=== PATIENT | male | born 1965 | race Caucasian/White ===

== ENCOUNTER 2016-07-21 12:26 | Emergency (ER) | payer OTHER ==
[~2016-07-21] VITALS: Ht 193 cm; Wt 172.0 kg
[~2016-07-21 12:26] MED LIST: CEPH500T PO; LIRA0.6P SQ; LISI30TA4; METF-206 PO; [UNRECOGNIZED DRUG - CODE] PO
[2016-07-21 12:30] VITALS: Ht 193 cm; Wt 172.0 kg
--- OUTSIDE RECORDS SUMMARY | 2016-07-21 12:30 | XMS REPORT ---
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 lbs Temperature 99.1 F Blood Pressure Diastolic 54 mm Hg Blood Pressure Systolic 128 mm Hg Cardiac Monitoring Heart Rate 80 Beats per Minute BMI 48.24 Index Respiratory Rate 20 per Minute Results No Known Results Summary Purpose eClinicalWorks Submission
--- OUTSIDE RECORDS SUMMARY | 2016-07-21 12:30 | XMS REPORT ---
Author Author Gilma Williamson [facility] eClinicalWorks Address Unknown Phone Unavailable Care Team Providers Care Radiology Resident Name Role Phone Gilma Williamson CP Unavailable Allergies No Known Allergies Problems Problem Type Condition Code Onset Dates Condition Status Problem Diabetes Mellitus Type 2, not stated as uncontrolled 250.00 Active Problem Other and unspecified hyperlipidemia 272.4 Active Problem Type 2 diabetes mellitus without complications E11.9 Active Problem Other testicular dysfunction 257.8 Active Problem Hypertension, benign 401.1 Active Problem Circadian rhythm sleep disorder, 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 Dx code E11.9 July 26, 2015 1.8 mg Results No Known Results Summary Purpose eClinicalWorks Submission
--- OUTSIDE RECORDS SUMMARY | 2016-07-21 12:31 | XMS REPORT ---
Author Neela Lan [facility] eClinicalWorks Address Unknown Phone Unavailable Care Team Providers Care Procurement Forester Name Role Phone Neela Lloyd CP Unavailable Allergies, Adverse Reactions, Alerts Substance Reaction Event Type N.K.D.A. 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 Problem Diabetes Mellitus Type 2, not stated as uncontrolled 250.00 Active Problem Other and unspecified hyperlipidemia 272.4 Active Assessment Other acute otitis externa 380.22 Active Problem Other testicular dysfunction 257.8 Active Problem Hypertension, benign 401.1 Active Medications Medication Code System Code Instructions Start Date End Date Status Dosage Viagra [facility] [address]-09 100 MG Orally PRN Jan 08, 2015 1 tablet as needed Victoza [facility] [address]-20 18 MG/3ML Subcutaneous Once a day Dec 31, 2014 1.8 mg GlipiZIDE [facility] [address]-59 10 MG Orally BID 1 tablet Nuvigil [facility] [address]-60 150 MG Orally Once a day August 05, 2013 Feb 06, 2015 1 tablet 30 min-1 hr prior to work Amoxicillin [facility] [address]-11 500 MG Orally Twice a day August 26, 2014 September 02, 2014 1 capsule Cephalexin [facility] [address]-24 500 MG Orally Twice a day September 01, 2014 September 08, 2014 1 tablet Polytrim [facility] [address]-56 60547-2.1 UNIT/ML-% Ophthalmic 5 times a day September 01, 2014 September 08, 2014 1 drop into affected eye Metformin HCl [facility] [address]-15 1000 MG Orally Twice a day 1 tablet with meals Lisinopril [facility] [address]-41 20 MG Orally Once a day 1.5 tablets Procedures Procedure Coding System Code Date INJECTION (plus drug) CPT-4 60508 September 01, 2014 ROCEPHIN 250MG CPT-4 J0696 September 01, 2014 TORADOL 30MG CPT-4 J1885 September 01, 2014 OFFICE VISIT, EST-LOW COMPLEXITY (15 MIN.) CPT-4 70554 September 01, 2014 Lidocaine injection CPT-4 J2001 September 01, 2014 Vital Signs Date/Time: September 01, 2014 Height 75 in Weight 396 lbs Temperature 97.9 F Blood Pressure Diastolic 70 mm Hg Blood Pressure Systolic 138 mm Hg Cardiac Monitoring Heart Rate 68 /min BMI 49.49 Index Respiratory Rate 12 /min Results No Known Results Summary Purpose eClinicalWorks Submission
--- OUTSIDE RECORDS SUMMARY | 2016-07-21 12:31 | XMS REPORT ---
Author Gilma Ashford eClinicalWorks Address Unknown Phone Unavailable Care Team Providers Care Wood Cutter Name Role Phone Gilma Williamson CP Unavailable Allergies, Adverse Reactions, Alerts Substance Reaction Event Type N.K.D.A. 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 [address]-87 100 MG Orally Three times a day Feb 09, 2015 Mar 01, 2015 1 capsule as needed Verapamil HCl CR [facility] [address]-72 180 MG Orally Once a day Feb 09, 2015 1 tablet in the morning with food Lisinopril [facility] [address]-60 20 MG Orally Once a day 1 tab GlipiZIDE [facility] [address]-55 10 MG Orally BID 1 tablet Accu-Chek Compact [facility] [address]-27 In Vitro BID Jan 14, 2015 as directed Albuterol Sulfate HFA [facility] [address]-49 108 (90 Base) MCG/ACT Inhalation every 4 hrs Feb 09, 2015 2 puffs as needed ProAir HFA [facility] [address]-54 108 (90 Base) MCG/ACT Inhalation every 4-6 hrs Feb 10, 2015 2 puffs as needed Metformin HCl [facility] [address]-18 1000 MG Orally Twice a day 1 tablet with meals Victoza [facility] [address]-34 18 MG/3ML Subcutaneous Once a day Apr 19, 2015 1.8 mg Procedures Procedure Coding System Code Date OFFICE VISIT, EST-LOW COMPLEXITY (15 MIN.) CPT-4 60191 Feb 10, 2015 Vital Signs Date/Time: Feb 10, 2015 Height 75 in Weight 394.8 lbs Temperature 98.3 F Blood Pressure Diastolic 69 mm Hg Blood Pressure Systolic 126 mm Hg Cardiac Monitoring Heart Rate 69 /min BMI 49.34 Index Respiratory Rate 20 /min Results No Known Results Summary Purpose eClinicalWorks Submission
--- OUTSIDE RECORDS SUMMARY | 2016-07-21 12:31 | XMS REPORT ---
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 Problem Diabetes Mellitus Type 2, not stated as uncontrolled 250.00 Active Problem Other and unspecified hyperlipidemia 272.4 Active Assessment Hypertension, benign 401.1 Active Assessment Diabetes Mellitus Type 2, not stated as uncontrolled 250.00 Active Problem Other testicular dysfunction 257.8 Active Problem Hypertension, benign 401.1 Active Medications Medication Code System Code Instructions Start Date End Date Status Dosage Victoza [facility] [address]-39 18 MG/3ML Subcutaneous Once a day Dec 31, 2014 1.8 mg GlipiZIDE [facility] [address]-01 10 MG Orally BID 1 tablet Nuvigil [facility] [address]-47 150 MG Orally Once a day August 05, 2013 Feb 06, 2015 1 tablet 30 min-1 hr prior to work Lisinopril [facility] [address]-68 20 MG Orally Once a day 1.5 tablets Metformin HCl [facility] [address]-70 1000 MG Orally Twice a day 1 tablet with meals Amoxicillin [facility] [address]-05 500 MG Orally Twice a day August 26, 2014 September 02, 2014 1 capsule Viagra [facility] [address]-95 100 MG Orally PRN Jan 08, 2015 1 tablet as needed Procedures Procedure Coding System Code Date HEMOGLOBIN A1C, IN HOUSE CPT-4 56695 August 26, 2014 COMPLETE CBC W/AUTO DIFF WBC CPT-4 46867 August 26, 2014 OFFICE VISIT, EST-LOW COMPLEXITY (15 MIN.) CPT-4 27087 August 26, 2014 TSH CPT-4 08448 August 26, 2014 COMPREHENSIVE METABOLIC PANEL CPT-4 03321 August 26, 2014 Vital Signs Date/Time: August 26, 2014 Height 75 in Weight 395 lbs Temperature 98.5 F Blood Pressure Diastolic 80 mm Hg Blood Pressure Systolic 160 mm Hg Cardiac Monitoring Heart Rate 68 /min BMI 49.37 Index Respiratory Rate 12 /min Results Name Result Date Reference Range Unit Abnormality Flag In House HB A1c Summary Purpose eClinicalWorks Submission
--- OUTSIDE RECORDS SUMMARY | 2016-07-21 12:31 | XMS REPORT ---
Author Gilma Ashford eClinicalWorks Address Unknown Phone Unavailable Care Team Providers Care Switchboard And Control Room Operator Name Role Phone Gilma Williamson CP Unavailable Allergies, Adverse Reactions, Alerts Substance Reaction Event Type N.K.D.A. 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 Problem Diabetes Mellitus Type 2, not stated as uncontrolled 250.00 Active Problem Hypertension, benign 401.1 Active Assessment Acute bronchitis, unspecified J20.9 Active Problem Diabetes Mellitus Type 2, not stated as uncontrolled 250.00 Active Problem Other testicular dysfunction 257.8 Active Medications Medication Code System Code Instructions Start Date End Date Status Dosage Verapamil HCl CR [facility] [address]-47 180 MG Orally Once a day Feb 09, 2015 1 tablet in the morning with food Tessalon Perles [facility] [address]-58 100 MG Orally Three times a day Feb 09, 2015 Mar 01, 2015 1 capsule as needed Lisinopril [facility] [address]-66 20 MG Orally Once a day 1 tab Metformin HCl [facility] [address]-97 1000 MG Orally Twice a day 1 tablet with meals Victoza [facility] [address]-70 18 MG/3ML Subcutaneous Once a day Apr 19, 2015 1.8 mg Albuterol Sulfate HFA [facility] [address]-74 108 (90 Base) MCG/ACT Inhalation every 4 hrs Feb 09, 2015 2 puffs as needed ProAir HFA [facility] [address]-64 108 (90 Base) MCG/ACT Inhalation every 4-6 hrs Feb 10, 2015 2 puffs as needed Azithromycin [facility] [address]-34 250 MG Orally Once a day 2 tablet on the first day, then 1 tablet daily for 4 days GlipiZIDE [facility] [address]-91 10 MG Orally BID 1 tablet Accu-Chek Compact [facility] [address]-27 In Vitro BID Jan 14, 2015 as directed Procedures Procedure Coding System Code Date URINALYSIS, IN HOUSE CPT-4 93060 Feb 14, 2015 HEMOGLOBIN A1C, IN HOUSE CPT-4 78440 Feb 14, 2015 OFFICE VISIT, EST-LOW COMPLEXITY (15 MIN.) CPT-4 09752 Feb 14, 2015 Vital Signs Date/Time: Feb 14, 2015 Height 75 in Weight 397.12 lbs Temperature 98.3 F Blood Pressure Diastolic 78 mm Hg Blood Pressure Systolic 145 mm Hg Cardiac Monitoring Heart Rate 65 /min BMI 49.63 Index Respiratory Rate 22 /min Results No Known Results Summary Purpose eClinicalWorks Submission
--- OUTSIDE RECORDS SUMMARY | 2016-07-21 12:31 | XMS REPORT ---
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
--- OUTSIDE RECORDS SUMMARY | 2016-07-21 12:31 | XMS REPORT ---
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
--- OUTSIDE RECORDS SUMMARY | 2016-07-21 12:31 | XMS REPORT | Continuity of Care Document ---
Author Author [facility] Organization [facility] Address Unknown Phone Unavailable Support Name Relationship Address Phone CANDIDO GILMORE APRN Caregiver [address] [place] [place] [id number] [id number] Next Of Kin [address] [place], [place] [id number] Problems Medical Problems Problem Onset Date Status Swelling of lower limb Unknown Active Diabetic foot ulcer Unknown Active Swelling of lower limb Unknown Active Medications Medication Dose Route Sig Days/Qty Instructions Order Date Discontinued Date Status Aspirin 1 Tab PO TWICE A DAY 08/23/09 01/17/12 Discontinued Exenatide 5 Mcg SQ TWICE A DAY 08/23/09 01/17/12 Discontinued Glipizide 1 Tab PO DAILY 08/23/09 01/17/12 Discontinued Lisinopril 1 Tab PO DAILY 08/23/09 01/17/12 Discontinued Lovastatin 1 Tab PO DAILY 08/23/09 01/17/12 Discontinued Metformin Hcl 1 Tab PO DAILY 08/23/09 Active Liraglutide 1.8 Mg SQ DAILY 01/17/12 Active Glipizide 10 Mg PO DAILY 01/17/12 Active Lisinopril DAILY 11/13/13 Active Cephalexin 1 Tab PO THREE TIMES A DAY 30 Qty 11/13/13 Active Social History Social History Problem Response Recorded Date/Time Hx Substance Use No 01/15/2014 12:00pm Hx Alcohol Use No 01/15/2014 12:00pm Hospital Discharge Instructions No hospital discharge instructions. Plan of Care No plan of care. Functional Status Query Response Date Recorded Physical Hygiene Self November 13, 2013 5:43pm Physical Hygiene Self November 13, 2013 5:43pm Allergies, Adverse Reactions, Alerts Allergen Type Severity Reaction Status Last Updated No Known Drug Allergies Allergy Unknown Active 11/13/13 Immunizations Name Given Type Hx Influenza Vaccination No Historical Hx Pneumococcal Vaccination No Historical Hx Influenza Vaccination No Historical Vital Signs No known vital signs results. Results Test Source Date Result Interp. Ref. Range Comments Activated Partial Thromboplast Time August 23, 2009 2:05pm 30.6 SEC N 24- 36 Alanine Aminotransferase (ALT/SGPT) November 11, 2013 4:43pm 45 U/L N 21-72 Albumin November 11, 2013 4:43pm 3.9 G/DL N 3.5-5.0 Albumin/Globulin Ratio November 11, 2013 4:43pm 1.4 RATIO N 1.1-2.2 Alkaline Phosphatase November 11, 2013 4:43pm 47 U/L N 38-126 Anion Gap November 11, 2013 4:43pm 12 MEQ/L N 5-15 Aspartate Amino Transf (AST/SGOT) November 11, 2013 4:43pm 31 U/L N 17- 59 BUN/Creatinine Ratio November 11, 2013 4:43pm 20 RATIO N 6-26 Band Neutrophils # August 23, 2009 2:05pm 0.2 T/MM3 - Band Neutrophils % August 23, 2009 2:05pm 2.0 % N 0-6 Basophils # (Auto) November 13, 2013 5:45pm 0.0 T/MM3 N 0-0.2 Basophils (%) (Auto) November 13, 2013 5:45pm 0.2 % N 0-2 Blood Urea Nitrogen November 11, 2013 4:43pm 22.0 MG/DL H 9-20 Calcium Level November 11, 2013 4:43pm 9.3 MG/DL N 8.4-10.2 Calculated Osmolality November 11, 2013 4:43pm 278 MOSM/KG N 261-280 Carbon Dioxide Level November 11, 2013 4:43pm 28 MEQ/L N 22-30 Chloride Level November 11, 2013 4:43pm 96 MEQ/L L 98-107 Cholesterol Level December 04, 2013 9:07am 189 MG/DL N 132-199 Cholesterol/HDL Ratio December 04, 2013 9:07am 6.3 RATIO H 0-5.0 Conjugated Bilirubin January 17, 2012 4:50pm 0.00 MG/DL N 0.00-0.30 Creatinine November 11, 2013 4:43pm 1.1 MG/DL N 0.8-1.5 Differential Total Cells Counted August 23, 2009 2:05pm 100 % - Eosinophils # (Auto) November 13, 2013 5:45pm 0.1 T/MM3 N 0-0.5 Eosinophils (%) (Auto) November 13, 2013 5:45pm 1.3 % N 0-4 Erythrocyte Sedimentation Rate November 11, 2013 4:43pm 36 MM/HR H 0- 15 Free Thyroxine August 14, 2010 9:00am 0.84 NG/DL N 0.78-2.19 Giardia Antigen January 17, 2012 5:20pm Ref lab rpt scanned - --- 01/18/12 1649 ---SELMAARD previously reported as: SENT OUT Globulin November 11, 2013 4:43pm 2.8 G/DL N 2.4-3.6 Glucose Level November 11, 2013 4:43pm 341 MG/DL H 75-110 Hematocrit November 13, 2013 5:45pm 41.8 % N 41-53 Hemoglobin November 13, 2013 5:45pm 13.6 GM/DL N 13.5-17.5 Hemoglobin A1c December 04, 2013 9:07am 9.3 % H 6-7 <6.0 NON-DIABETIC RANGE6.0-7.0 ADA THERAPEUTIC RANGE >7.0 ACTION SUGGESTED Hepatitis B Surface Antigen December 05, 2011 3:45pm Negative - Hepatitis C Antibody December 05, 2011 3:45pm Negative - LDL Cholesterol, Calculated December 04, 2013 9:07am 103.4 N 66-159 Lipase January 17, 2012 4:50pm 75 U/L N 23-300 Lymphocytes # (Auto) November 13, 2013 5:45pm 2.1 T/MM3 N 1-4.8 Lymphocytes # (Manual) August 23, 2009 2:05pm 1.2 T/MM3 N 1-4.8 Lymphocytes % (Manual) August 23, 2009 2:05pm 10.0 % L 23-45 Lymphocytes (%) (Auto) November 13, 2013 5:45pm 25.5 % N 23-45 Mean Corpuscular Hemoglobin November 13, 2013 5:45pm 28.1 UUG N 26-34 Mean Corpuscular Hemoglobin Concent November 13, 2013 5:45pm 32.5 GM/DL N 31-37 Mean Corpuscular Volume November 13, 2013 5:45pm 86.4 UM3 N 80-100 Mean Platelet Volume November 13, 2013 5:45pm 10.9 UM3 N 9.4-12.4 Monocytes # (Auto) November 13, 2013 5:45pm 0.6 T/MM3 N 0-0.8 Monocytes # (Manual) August 23, 2009 2:05pm 0.1 T/MM3 N 0-0.8 Monocytes % (Manual) August 23, 2009 2:05pm 1.0 % N 0-9.0 Monocytes (%) (Auto) November 13, 2013 5:45pm 6.7 % N 0-9.0 Neutrophils # (Auto) November 13, 2013 5:45pm 5.4 T/MM3 N 1.8-7.7 Neutrophils # (Manual) August 23, 2009 2:05pm 10.6 T/MM3 H 1.8-7.7 Neutrophils % (Manual) August 23, 2009 2:05pm 87.0 % H 33-66 Neutrophils (%) (Auto) November 13, 2013 5:45pm 65.7 % N 33-66 Ova and Parasites (LAB) January 17, 2012 5:20pm Sent out - Has specimen been collected/obtained? Y Platelet Count November 13, 2013 5:45pm 171 T/MM3 N 130-400 Potassium Level November 11, 2013 4:43pm 3.9 MEQ/L N 3.6-5 Prothromb Time International Ratio August 23, 2009 2:05pm 1.20 H 0.86- 1.10 THERAPUTIC RANGE=2.00-3.00 FOR ANTI-THROMBOSIS THERAPUTIC RANGE=2.50- 3.50 FOR IMPLANTED VALVE RDW Standard Deviation November 13, 2013 5:45pm 40.1 FL N 36.9-50.2 Red Blood Count November 13, 2013 5:45pm 4.84 M/MM3 N 4.50-5.90 Sodium Level November 11, 2013 4:43pm 136 MEQ/L N 134-144 Stool for White Cells January 17, 2012 5:20pm Negative - Has specimen been collected/obtained? Y Thyroid Stimulating Hormone (TSH) June 02, 2011 11:11am 2.22 MIU/L N 0.47-4.68 Total Bilirubin November 11, 2013 4:43pm 0.60 MG/DL N 0.20-1.30 Total Protein November 11, 2013 4:43pm 6.7 G/DL N 6.3-8.2 Triglycerides Level December 04, 2013 9:07am 278 MG/DL H 40-160 Unconjugated Bilirubin January 17, 2012 4:50pm 0.20 MG/DL N 0.00-1.10 Urine Amorphous Phosphates August 23, 2009 2:02pm Few - Has specimen been collected/obtained? Y Urine Bacteria August 23, 2009 2:02pm Trace H - Has specimen been collected/obtained? Y Urine Bilirubin January 17, 2012 6:40pm Negative - Has specimen been collected/obtained? Y Urine Blood January 17, 2012 6:40pm Negative - Has specimen been collected/obtained? Y Urine Collection Type January 17, 2012 6:40pm Voided - Has specimen been collected/obtained? Y Urine Color January 17, 2012 6:40pm Yellow - Has specimen been collected/obtained? Y Urine Glucose (UA) January 17, 2012 6:40pm Negative - Has specimen been collected/obtained? Y Urine Ketones January 17, 2012 6:40pm Negative - Has specimen been collected/obtained? Y Urine Leukocyte Esterase January 17, 2012 6:40pm Negative - Has specimen been collected/obtained? Y Urine Microalbumin June 02, 2011 11:11am 37.3 MG/L H 0-17 Urine Mucus August 23, 2009 2:02pm Present - Has specimen been collected/obtained? Y Urine Nitrite January 17, 2012 6:40pm Negative - Has specimen been collected/obtained? Y Urine Protein January 17, 2012 6:40pm Negative - Has specimen been collected/obtained? Y Urine RBC August 23, 2009 2:02pm None seen /HPF - Has specimen been collected/obtained? Y Urine Specific [place] January 17, 2012 6:40pm 1.020 - Has specimen been collected/obtained? Y Urine Squamous Epithelial Cells August 23, 2009 2:02pm Few - Has specimen been collected/obtained? Y Urine Turbidity January 17, 2012 6:40pm Clear - Has specimen been collected/obtained? Y Urine Urobilinogen January 17, 2012 6:40pm Normal EU/DL - Has specimen been collected/obtained? Y Urine WBC August 23, 2009 2:02pm 3-5 /HPF - Has specimen been collected /obtained? Y Urine pH January 17, 2012 6:40pm 5.0 - Has specimen been collected/ obtained? Y VLDL Cholesterol December 04, 2013 9:07am 55.6 MG/DL H 0-28 White Blood Count November 13, 2013 5:45pm 8.3 T/MM3 N 4.5-11.0 Chemistry Specimen Hemolysis November 11, 2013 4:43pm < 15 0-25 0-25 : No Hemolysis.26-70: Slight Hemolysis - can falsely elevate K and Urine Protein. 71-285: Moderate Hemolysis - can falsely elevate K, Troponin I, CA 19-9, PTH, CSF GLucose, and Urine Protein, and can falsely decrease Phenytoin. 286-999: Gross Hemolysis - can falsely elevate K, Troponin I, CA 19-9, PTH, CSF Glucose, and Urine Protine, and can falsely decrease Phenytoin. Recommend specimen recollection. Lab Scanned Report December 04, 2013 9:12am LAB TEST FORM REQUEST [id number] - HDL Cholesterol Direct December 04, 2013 9:07am 30 MG/DL L 40-60 HIV (1&2) Antibody Rapid December 05, 2011 3:45pm Negative - Turbidity November 11, 2013 4:43pm < 20 0-20 Glomerular Filtration Rate Calc November 11, 2013 4:43pm 71 - Immature Granulocyte # (Auto) November 13, 2013 5:45pm 0.05 T/MM3 H 0.00-0.03 Immature Granulocyte % (Auto) November 13, 2013 5:45pm 0.6 % H 0.0-0.5 Icterus Index November 11, 2013 4:43pm < 2 0-7 Urine Microscopic Not Indicated January 17, 2012 6:40pm Not indicated - Has specimen been collected/obtained? Y C. difficile Toxin B Gene (PCR) January 17, 2012 5:20pm Negative - If Toxin A is clinically indicated, treat accordingly. Blood Culture Blood January 17, 2012 4:55pm NO GROWTH AFTER 5 DAYS Stool Culture Stool January 17, 2012 5:20pm Procedures No known history of procedures. Encounters Encounter Location Date/Time Discharged [facility] 01/15/14 9:00am
--- OUTSIDE RECORDS SUMMARY | 2016-07-21 12:31 | XMS REPORT ---
Author Gilma Ashford [facility] eClinicalWorks Address Unknown Phone Unavailable Care Team Providers Care Monologist Name Role Phone Gilma Williamson CP Unavailable Allergies, Adverse Reactions, Alerts Substance Reaction Event Type N.K.D.A. 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 Problem Diabetes Mellitus Type 2, not stated as uncontrolled 250.00 Active Problem Hypertension, benign 401.1 Active Assessment Unspecified otitis media 382.9 Active Problem Diabetes Mellitus Type 2, not stated as uncontrolled 250.00 Active Problem Other testicular dysfunction 257.8 Active Medications Medication Code System Code Instructions Start Date End Date Status Dosage Hydrocodone-Acetaminophen [facility] [address]-12 5-325 MG Orally every 6 hrs 1 tablet as needed Metformin HCl [facility] [address]-91 1000 MG Orally Twice a day 1 tablet with meals Nuvigil [facility] [address]-49 150 MG Orally Once a day August 05, 2013 Feb 06, 2015 1 tablet 30 min-1 hr prior to work Fluticasone Propionate [facility] [address]-57 50 MCG/ACT Nasally Once a day September 13, 2014 1 spray in each nostril Victoza [facility] [address]-68 18 MG/3ML Subcutaneous Once a day Dec 31, 2014 1.8 mg Lisinopril [facility] [address]-30 20 MG Orally Once a day 1.5 tablets GlipiZIDE [facility] [address]-32 10 MG Orally BID 1 tablet Viagra [facility] [address]-89 100 MG Orally PRN Jan 08, 2015 1 tablet as needed Procedures Procedure Coding System Code Date OFFICE VISIT, EST-LOW COMPLEXITY (15 MIN.) CPT-4 86679 September 13, 2014 Vital Signs Date/Time: September 13, 2014 Height 75 in Weight 389.75 lbs Temperature 97.8 F Blood Pressure Diastolic 74 mm Hg Blood Pressure Systolic 176 mm Hg Cardiac Monitoring Heart Rate 60 /min BMI 48.71 Index Respiratory Rate 20 /min Results No Known Results Summary Purpose eClinicalWorks Submission
--- OUTSIDE RECORDS SUMMARY | 2016-07-21 12:31 | XMS REPORT ---
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 Problem Diabetes Mellitus Type 2, not stated as uncontrolled 250.00 Active Problem Hypertension, benign 401.1 Active Assessment Diabetes Mellitus Type 2, not stated as uncontrolled 250.00 Active Problem Diabetes Mellitus Type 2, not stated as uncontrolled 250.00 Active Problem Other testicular dysfunction 257.8 Active Medications Medication Code System Code Instructions Start Date End Date Status Dosage Victoza [facility] [address]-27 18 MG/3ML Subcutaneous Once a day Apr 19, 2015 1.8 mg Viagra [facility] [address]-80 100 MG Orally PRN Feb 13, 2015 1 tablet as needed Accu-Chek Compact [facility] [address]-57 In Vitro BID Jan 14, 2015 as directed Results No Known Results Summary Purpose eClinicalWorks Submission
--- OUTSIDE RECORDS SUMMARY | 2016-07-21 12:31 | XMS REPORT ---
Author Author Gilma Williamson [facility] eClinicalWorks Address Unknown Phone Unavailable Care Team Providers Care Master Cosmetologist Name Role Phone Gilma Williamson CP Unavailable [...] Start Date End Date Status Dosage Victoza [facility] [address]-51 18 MG/3ML Subcutaneous Once a day July 08, 2015 1.8 mg Results No Known Results Summary Purpose eClinicalWorks Submission
--- OUTSIDE RECORDS SUMMARY | 2016-07-21 12:31 | XMS REPORT ---
Author Tor Gill Organization eClinicalWorks Address Unknown Phone Unavailable Care Team Providers Care Clinic Assistant Name Role Phone Tor Edwards CP Unavailable Allergies, Adverse Reactions, Alerts Substance Reaction Event Type N.K.D.A. Info Not Available Non Drug Allergy Problems Problem Type Condition ICD-9 Code Onset Dates Condition Status Assessment Other acute otitis externa 380.22 Active Assessment Diabetes Mellitus Type 2, not [...] Instructions Start Date End Date Status Dosage [place] [facility] [address]-97 5-325 MG Orally every 6 hrs as needed for pain. take no other tylenol products or pain medicines while on this. September 02, 2014 September 16, 2014 1 tablet as needed Nuvigil [facility] [address]-87 150 MG Orally Once a day August 05, 2013 Feb 06, 2015 1 tablet 30 min-1 hr prior to work Lisinopril [facility] [address]-91 20 MG Orally Once a day 1.5 tablets Victoza [facility] [address]-21 18 MG/3ML Subcutaneous Once a day Dec 31, 2014 1.8 mg Polytrim [facility] [address]-20 06818-3.1 UNIT/ML-% Ophthalmic 5 times a day September 01, 2014 September 08, 2014 1 drop into affected eye Clotrimazole [facility] [address]-49 1 % Externally to bilateral ears Three times a day September 02, 2014 September 12, 2014 otic solution. 3 to 4 drops to affected ears Levaquin [facility] [address]-93 750 MG Orally every 24 hrs September 02, 2014 September 12, 2014 1 tablet Viagra [facility] [address]-83 100 MG Orally PRN Jan 08, 2015 1 tablet as needed Metformin HCl [facility] [address]-53 1000 MG Orally Twice a day 1 tablet with meals GlipiZIDE [facility] [address]-43 10 MG Orally BID 1 tablet Procedures Procedure Coding System Code Date COMPREHENSIVE METABOLIC PANEL CPT-4 56672 September 02, 2014 SED RATE CPT-4 67661 September 02, 2014 COMPLETE CBC W/AUTO DIFF WBC CPT-4 18267 September 02, 2014 OFFICE VISIT, EST-MOD. COMPLEXITY (25 MIN) CPT-4 00976 September 02, 2014 Vital Signs Date/Time: September 02, 2014 Height 75 in Weight 396 lbs Temperature 98.1 F Blood Pressure Diastolic 74 mm Hg Blood Pressure Systolic 136 mm Hg Cardiac Monitoring Heart Rate 71 /min BMI 49.49 Index Oximetry 98 % Respiratory Rate 16 /min Results No Known Results Summary Purpose eClinicalWorks Submission
--- OUTSIDE RECORDS SUMMARY | 2016-07-21 12:31 | XMS REPORT ---
Author Author Gilma Williamson [facility] eClinicalWorks Address Unknown Phone Unavailable Care Team Providers Care Flake Miller Wheat And Oats Name Role Phone Gilma Williamson CP Unavailable [...]
--- OUTSIDE RECORDS SUMMARY | 2016-07-21 12:31 | XMS REPORT ---
Author Author Chelita Guzman [facility] eClinicalWorks Address Unknown Phone Unavailable Care Team Providers Care Exterminator Name Role Phone Chelita Guzman CP Unavailable Allergies, Adverse Reactions, Alerts Substance Reaction Event Type N.K.D.A. 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 Assessment Essential (primary) hypertension I10 Active [...] Instructions Start Date End Date Status Dosage Lisinopril [facility] [address]-13 20 MG Orally Once a day 1 tab Albuterol Sulfate HFA [facility] [address]-02 108 (90 Base) MCG/ACT Inhalation every 4 hrs Feb 09, 2015 2 puffs as needed BD U/F Short Pen Needle [facility] 8290-565297 31G X 8 MM Subcutaneous BID, DX: E11.9 Feb 24, 2015 as directed Metformin HCl [facility] [address]-38 1000 MG Orally Twice a day 1 tablet with meals Acyclovir [facility] [address]-66 400 MG Orally five times a day Mar 16, 2015 1 tablet ProAir HFA [facility] [address]-63 108 (90 Base) MCG/ACT Inhalation every 4-6 hrs Feb 10, 2015 2 puffs as needed Verapamil HCl CR [facility] [address]-08 180 MG Orally Once a day Feb 09, 2015 1 tablet in the morning with food Victoza [facility] [address]-95 18 MG/3ML Subcutaneous Once a day July 08, 2015 1.8 mg GlipiZIDE [facility] [address]-01 10 MG Orally BID 1 tablet Accu-Chek Compact [facility] [address]-08 In Vitro BID Jan 14, 2015 as directed Azithromycin [facility] [address]-61 250 MG Orally Once a day 2 tablet on the first day, then 1 tablet daily for 4 days Procedures Procedure Coding System Code Date OFFICE VISIT, EST-LOW COMPLEXITY (15 MIN.) CPT-4 68235 Mar 16, 2015 Vital Signs Date/Time: Mar 16, 2015 Height 75 in Weight 394.0 lbs Temperature 98.2 F Blood Pressure Diastolic 82 mm Hg Blood Pressure Systolic 133 mm Hg Cardiac Monitoring Heart Rate 80 /min BMI 49.24 Index Respiratory Rate 22 /min Results No Known Results Summary Purpose eClinicalWorks Submission
--- OUTSIDE RECORDS SUMMARY | 2016-07-21 12:31 | XMS REPORT | Continuity of Care Document ---
Author Author [facility] Organization [facility] Address Unknown Phone Unavailable Support Name Relationship Address Phone DEIRDRE CANDIDOANNABELLA Allen APRN Caregiver [address] [place] [address] LEVI CARLSON MD Caregiver [address] [place] [address] [place] [phone] SHAINA SPENCER Next Of Kin [address] [place] [address] Problems Medical Problems Problem Onset Date Status Swelling of lower limb Unknown Active Diabetic foot ulcer Unknown Active Medications Medication Dose Route Sig [...] History Social History Problem Response Recorded Date/Time Smoking Status Former smoker 11/13/2013 5:43pm When did patient START smoking? 199211/13/2013 5:43pm When did patient STOP smoking? 199511/13/2013 5:43pm Chewing Tobacco Status Yes 11/13/2013 5:43pm Hx Substance Use No 11/13/2013 5:43pm Hx Alcohol Use No 11/13/2013 5:43pm Query Response Start Date Stop Date Smoking Status Never smoker Hospital Discharge Instructions No hospital discharge instructions. Plan of Care No plan of care. Functional Status Query Response Date Recorded Physical Hygiene Self November 13, 2013 5:43pm Disabilities None November 13, 2013 5:43pm Devices Used Glasses November 13, 2013 5:43pm Dressing Self November 13, 2013 5:43pm Ambulation Self November 13, 2013 5:43pm Diet Self November 13, 2013 5:43pm Mental Status Alert November 13, 2013 7:57pm Disabilities None November 13, 2013 5:43pm Devices Used Glasses November 13, 2013 5:43pm Physical Hygiene Self November 13, 2013 5:43pm Dressing Self November 13, 2013 5:43pm Ambulation Self November 13, 2013 5:43pm Diet Self November 13, 2013 5:43pm Allergies, Adverse Reactions, Alerts Allergen Type Severity Reaction Status Last Updated No Known Drug Allergies Allergy Unknown Active 11/13/13 Immunizations Name Given Type Hx Influenza Vaccination No Historical Hx Pneumococcal Vaccination No Historical Hx Influenza Vaccination No Historical Vital Signs Acute Vital Signs Vital Response Date/Time Temperature (Fahrenheit) 97.8 deg F (96.8 - 99.1) Temperature (Calculated Celsius) 36.08024 degrees C (36.0 - 37.3) Pulse Rate (adult) 62 bpm (60 - 100) Respiratory Rate 20 breaths/min (10 - 20) O2 Sat by Pulse Oximetry 95 % (90 - 100) Blood Pressure 143/75 mm Hg Height 6 ft 3 in Weight 388 lb Body Mass Index 48.0 kg/m^2 Results Test Source Date Result Interp. Ref. [...] 4:43pm 96 MEQ/L L 98-107 Cholesterol Level June 02, 2011 11:11am 208 MG/DL H 132-199 Cholesterol/HDL Ratio June 02, 2011 11:11am 5.6 RATIO H 0-5.0 Conjugated Bilirubin January 17, [...] lab rpt scanned - --- 01/18/12 1649 ---SAE previously reported as: SENT OUT Globulin November 11, 2013 4:43pm 2.8 G/DL N 2.4-3.6 Glucose Level November 11, 2013 4:43pm 341 MG/DL H 75-110 Hematocrit November 13, 2013 5:45pm 41.8 % N 41-53 Hemoglobin November 13, 2013 5:45pm 13.6 GM/DL N 13.5-17.5 Hemoglobin A1c February 27, 2012 4:10pm 6.4 % DN 6-7 <6.0 NON-DIABETIC RANGE6.0-7.0 ADA THERAPEUTIC RANGE >7.0 ACTION SUGGESTED Hepatitis B Surface Antigen December 05, 2011 3:45pm Negative - Hepatitis C Antibody December 05, 2011 3:45pm Negative - LDL Cholesterol, Calculated June 02, 2011 11:11am 171 H 66-159 Lipase January 17, 2012 4:50pm 75 [...] 4:43pm 6.7 G/DL N 6.3-8.2 Triglycerides Level June 02, 2011 11:11am 199 MG/DL H 40-160 Unconjugated Bilirubin January 17, [...] Has specimen been collected/obtained? Y Urine Specific [place] January 17, 2012 6:40pm 1.020 - Has [...] specimen been collected/ obtained? Y VLDL Cholesterol June 02, 2011 11:11am 39.8 MG/DL H 0-28 White Blood Count November [...] Phenytoin. Recommend specimen recollection. Lab Scanned Report November 11, 2013 7:27pm LAB TEST FORM REQUEST [id number] - HDL Cholesterol Direct June 02, 2011 11:11am 37 MG/DL L 40-60 HIV (1&2) Antibody Rapid [...] history of procedures. Encounters Encounter Location Date/Time Registered Emergency Room [facility] 11/13/13 4:45pm Recent Diagnosis
--- OUTSIDE RECORDS SUMMARY | 2016-07-21 12:31 | XMS REPORT ---
Author Gilma Ashford [facility] eClinicalWorks Address Unknown Phone Unavailable Care Team Providers Care Tube Skiver Name Role Phone Gilma Williamson Unavailable Allergies No Known Allergies Problems Problem Type Condition ICD-9 Code Onset Dates Condition Status Assessment Other acute otitis externa 380.22 Active Problem Other and unspecified hyperlipidemia 272.4 [...] Instructions Start Date End Date Status Dosage Metformin HCl [facility] [address]-63 1000 MG Orally Twice a day 1 tablet with meals Clotrimazole [facility] [address]-36 1 % Externally to bilateral ears Three times a day September 02, 2014 September 12, 2014 otic solution. 3 to 4 drops to affected ears Victoza [facility] [address]-99 18 MG/3ML Subcutaneous Once a day Dec 31, 2014 1.8 mg Cephalexin [facility] [address]-85 500 MG Orally Twice a day September 01, 2014 September 08, 2014 1 tablet Viagra [facility] [address]-00 100 MG Orally PRN Jan 08, 2015 1 tablet as needed Lisinopril [facility] [address]-83 20 MG Orally Once a day 1.5 tablets Levaquin [facility] [address]-90 750 MG Orally every 24 hrs September 02, 2014 September 12, 2014 1 tablet GlipiZIDE [facility] [address]-57 10 MG Orally BID 1 tablet Polytrim [facility] [address]-32 84142-2.1 UNIT/ML-% Ophthalmic 5 times a day September 01, 2014 September 08, 2014 1 drop into affected eye Nuvigil [facility] [address]-10 150 MG Orally Once a day August 05, 2013 Feb 06, 2015 1 tablet 30 min-1 hr prior to work Procedures Procedure Coding System Code Date OFFICE VISIT, EST-LOW COMPLEXITY (15 MIN.) CPT-4 57916 September 03, 2014 Results No Known Results Summary Purpose eClinicalWorks Submission
--- OUTSIDE RECORDS SUMMARY | 2016-07-21 12:31 | XMS REPORT ---
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 Problem Diabetes Mellitus Type 2, not stated as uncontrolled 250.00 Active Problem Other and unspecified hyperlipidemia 272.4 Active Assessment Need for prophylactic vaccination and inoculation, Influenza V04.81 Active Problem Other testicular dysfunction 257.8 Active Problem Hypertension, benign 401.1 Active Medications Medication Code System Code Instructions Start Date End Date Status Dosage Victoza [facility] [address]-56 18 MG/3ML Subcutaneous Once a day Dec 31, 2014 Active 1.8 mg Lisinopril [facility] [address]-35 20 MG Orally Once a day Active 1.5 tablets Nuvigil [facility] [address]-49 150 MG Orally Once a day August 05, 2013 Nov 07, 2014 Active 1 tablet 30 min-1 hr prior to work Viagra [facility] [address]-85 100 MG Orally PRN Jan 08, 2015 Active 1 tablet as needed Metformin HCl [facility] [address]-27 1000 MG Orally Twice a day Active 1 tablet with meals GlipiZIDE [facility] [address]-79 10 MG Orally BID Active 1 tablet Procedures Procedure Coding System Code Date ADMINISTRATION, 1ST IMMUNIZATION CPT-4 68989 Feb 11, 2014 FLU VACCINE NO PRESERV 3 & > CPT-4 14753 Feb 11, 2014 Vital Signs Date/Time: Feb 11, 2014 Blood Pressure Diastolic 60 mm Hg Blood Pressure Systolic 130 mm Hg Height 75 inches Results No Known Results Immunizations Vaccine Administration Date Influenza shot 4 y.o. and older Feb 11, 2014 Summary Purpose eClinicalWorks Submission
--- OUTSIDE RECORDS SUMMARY | 2016-07-21 12:31 | XMS REPORT ---
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 Problem Diabetes Mellitus Type 2, not stated as uncontrolled 250.00 Active Problem Other and unspecified hyperlipidemia 272.4 Active Assessment Hypertension, benign 401.1 Active Problem Other testicular dysfunction 257.8 Active Problem Hypertension, benign 401.1 Active Medications Medication Code System Code Instructions Start Date End Date Status Dosage Metformin HCl [facility] [address]-23 1000 MG Orally Twice a day Active 1 tablet with meals Viagra [facility] [address]-95 100 MG Orally PRN Jan 08, 2015 Active 1 tablet as needed GlipiZIDE [facility] [address]-12 10 MG Orally BID Active 1 tablet Nuvigil [facility] [address]-04 150 MG Orally Once a day August 05, 2013 Nov 07, 2014 Active 1 tablet 30 min-1 hr prior to work Victoza [facility] [address]-18 18 MG/3ML Subcutaneous Once a day Dec 31, 2014 Active 1.8 mg Lisinopril [facility] [address]-80 20 MG Orally Once a day Active 1.5 tablets Procedures Procedure Coding System Code Date DUMMY CODE FOR NURSE VISIT CPT-4 DUMMY Jan 15, 2014 Vital Signs Date/Time: Jan 15, 2014 Blood Pressure Diastolic 50 mm Hg Blood Pressure Systolic 110 mm Hg Height 75 inches Results No Known Results Summary Purpose eClinicalWorks Submission
--- OUTSIDE RECORDS SUMMARY | 2016-07-21 12:31 | XMS REPORT ---
Author Author Chelita Guzman [facility] eClinicalWorks Address Unknown Phone Unavailable Care Team Providers Care Fitter Placer Name Role Phone Chelita Guzman CP Unavailable Allergies, Adverse Reactions, Alerts Substance Reaction Event Type N.K.D.A. Info Not Available Non Drug Allergy Problems Problem Type Condition Code Onset Dates Condition Status Assessment Benign paroxysmal vertigo, unspecified ear H81.10 Active Assessment Essential (primary) hypertension I10 Active Assessment Other hyperlipidemia E78.4 Active Assessment Erectile dysfunction due to diseases classified elsewhere N52.1 Active Problem Other and unspecified hyperlipidemia 272.4 [...] Start Date End Date Status Dosage Victoza [facility] [address]-50 18 MG/3ML Subcutaneous Once a day Apr 19, [address] [facility] [address]-93 150 MG Orally Once a day August 05, 2013 Feb 06, 2015 1 tablet 30 min-1 hr prior to work Fluticasone Propionate [facility] [address]-83 50 MCG/ACT Nasally Once a day September 13, 2014 1 spray in each nostril Metformin HCl [facility] [address]-02 1000 MG Orally Twice a day 1 tablet with meals Viagra [facility] [address]-46 100 MG Orally PRN Feb 18, 2015 1 tablet as needed Lisinopril [facility] [address]-14 20 MG Orally Once a day 1.[address] [facility] [address]-73 10 MG Orally BID 1 tablet Procedures Procedure Coding System Code Date OFFICE VISIT, EST-LOW COMPLEXITY (15 MIN.) CPT-4 20374 Dec 20, 2014 HEMOGLOBIN A1C, IN HOUSE CPT-4 73929 Dec 20, 2014 Vital Signs Date/Time: Dec 20, 2014 Height 75 in Weight 374.4 lbs Temperature 97.9 F Blood Pressure Diastolic 72 mm Hg Blood Pressure Systolic 140 mm Hg Cardiac Monitoring Heart Rate 74 /min BMI 46.79 Index Respiratory Rate 24 /min Results Name Result Date Reference Range Unit Abnormality Flag In House HB A1c Summary Purpose eClinicalWorks Submission
--- OUTSIDE RECORDS SUMMARY | 2016-07-21 12:31 | XMS REPORT ---
Author Author Gilma Williamson [facility] eClinicalWorks Address Unknown Phone Unavailable Care Team Providers Care Manager Mobility Name Role Phone Gilma Williamson CP Unavailable [...] benign 401.1 Active Medications No Known Medications Results No Known Results Summary Purpose eClinicalWorks Submission
--- OUTSIDE RECORDS SUMMARY | 2016-07-21 12:31 | XMS REPORT ---
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
--- OUTSIDE RECORDS SUMMARY | 2016-07-21 12:32 | XMS REPORT ---
Author Gilma Ashford [employer] Address Unknown Phone Unavailable Care Team Providers Care Senior Courtroom Clerk Name Role Phone Gilma Williamson CP Unavailable Allergies, Adverse Reactions, Alerts Substance Reaction Event Type N.K.D.A. 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 Problem Diabetes Mellitus Type 2, not stated as uncontrolled 250.00 Active Medications Medication Code System Code Instructions Start Date End Date Status Dosage Victoza [facility] [address]-11 18 MG/3ML Subcutaneous Once a day 1.2 Accu-Chek Compact [facility] [address]-09 In Vitro BID Jan 14, 2015 as directed Metformin HCl [facility] [address]-25 500 MG ER Orally once a day 4 tablet with meals GlipiZIDE [facility] [address]-74 10 MG Orally BID 1 tablet Viagra [facility] [address]-52 100 MG Orally Once a day as needed Mar 24, 2015 Mar 18, 2016 1 tablet BD U/F Short Pen Needle [facility] 8290-927872 31G X 8 MM Subcutaneous BID, DX: E11.9 Feb 24, 2015 as directed Lisinopril [facility] [address]-16 40 MG Orally Once a day 1 tab Procedures Procedure Coding System Code Date Fluzone/Fluarix IIV4 Pfree (age 3yr & older) CPT-4 61524 Jan 30, 2016 ADMINISTRATION, 1ST IMMUNIZATION CPT-4 44934 Jan 30, 2016 OFFICE VISIT, EST-LOW COMPLEXITY (15 MIN.) CPT-4 09896 Jan 30, 2016 Vital Signs Date/Time: Jan 30, 2016 Temperature 99.5 F Height 75 in Weight 343.8 lbs Blood Pressure Diastolic 74 mm Hg Blood Pressure Systolic 138 mm Hg Cardiac Monitoring Heart Rate 76 /min BMI 42.97 Index Oximetry 94 % Respiratory Rate 16 /min Results No Known Results Immunizations Vaccine Administration Date Fluzone/Fluarix IIV4 Pfree (age 3yr & older) Jan 30, 2016 Summary Purpose eClinicalWorks Submission
--- OUTSIDE RECORDS SUMMARY | 2016-07-21 12:32 | XMS REPORT ---
Author Author Chelita Guzman Organization [employer] Address Unknown Phone Unavailable Care Team Providers Care Improvement Auditor Name Role Phone Chelita Guzman CP Unavailable Allergies No Known Allergies Problems [...]
--- OUTSIDE RECORDS SUMMARY | 2016-07-21 12:32 | XMS REPORT ---
Author Author Gilma Williamson [facility] eClinicalWorks Address Unknown Phone Unavailable Care Team Providers Care Supervisor Leaf Spring Repair Name Role Phone Gilma Williamson CP Unavailable [...] Instructions Start Date End Date Status Dosage BD Ultra-Fine [place] [facility] 8290-192442 29G X 12.7MM bid, dx code E11.9 BID Feb 22, 2015 as directed Results No Known Results Summary Purpose eClinicalWorks Submission
--- OUTSIDE RECORDS SUMMARY | 2016-07-21 12:32 | XMS REPORT ---
Author Gilma Ashford [employer] Address Unknown Phone Unavailable Care Team Providers Care Security Management Specialist Name Role Phone Gilma Williamson CP Unavailable Allergies, Adverse Reactions, Alerts Substance Reaction Event Type N.K.D.A. Info Not Available Non Drug Allergy Problems Problem Type Condition Code Onset Dates Condition Status Assessment Upper respiratory tract infection, unspecified type J06.9 Active Problem Diabetes Mellitus Type 2, not [...] Instructions Start Date End Date Status Dosage Accu-Chek Compact [facility] [address]-41 In Vitro BID Jan 14, 2015 as directed Viagra [facility] [address]-75 100 MG Orally Once a day as needed Mar 24, 2015 Mar 18, 2016 1 tablet GlipiZIDE [facility] [address]-41 10 MG Orally BID 1 tablet Verapamil HCl CR [facility] [address]-83 240 MG Orally Once a day Feb 09, 2015 1 tablet in the morning with food Azithromycin [facility] [address]-65 250 MG Orally Once a day Dec 01, 2015 2 tablets on the first day, then 1 tablet daily for 4 days ProAir HFA [facility] [address]-35 108 (90 Base) MCG/ACT Inhalation every 4-6 hrs Dec 01, 2015 2 puffs as needed Victoza [facility] [address]-80 18 MG/3ML Subcutaneous Once a day 1.2 Metformin HCl [facility] [address]-53 500 MG ER Orally once a day 4 tablet with meals BD U/F Short Pen Needle [facility] 8290-315812 31G X 8 MM Subcutaneous BID, DX: E11.9 Feb 24, 2015 as directed Lisinopril [facility] [address]-26 40 MG Orally Once a day 1 tab Procedures Procedure Coding System Code Date OFFICE VISIT, EST-LOW COMPLEXITY (15 MIN.) CPT-4 77718 Dec 01, 2015 Vital Signs Date/Time: Dec 01, 2015 Temperature 101.1 F Height 75 in Weight 388 lbs Blood Pressure Diastolic 70 mm Hg Blood Pressure Systolic 152 mm Hg Cardiac Monitoring Heart Rate 88 /min BMI 48.49 Index Oximetry 94 % Respiratory Rate 16 /min Results No Known Results Summary Purpose eClinicalWorks Submission
--- OUTSIDE RECORDS SUMMARY | 2016-07-21 12:32 | XMS REPORT ---
Author Author Gilma Williamson [facility] eClinicalWorks Address Unknown Phone Unavailable Care Team Providers Care Grease Maker Head Name Role Phone Gilma Williamson CP Unavailable [...] Start Date End Date Status Dosage Victoza [facility] [address]-78 18 MG/3ML Subcutaneous Once a day. Dx code E11.9 July 20, 2015 1.8 mg Results No Known Results Summary Purpose eClinicalWorks Submission
--- OUTSIDE RECORDS SUMMARY | 2016-07-21 12:32 | XMS REPORT ---
Author Author Chelita Guzman [facility] eClinicalWorks Address Unknown Phone Unavailable Care Team Providers Care Director Of Academic Support Name Role Phone Chelita Guzman CP Unavailable Allergies, Adverse Reactions, Alerts Substance Reaction Event Type N.K.D.A. Info Not Available Non Drug Allergy Problems Problem Type Condition Code Onset Dates Condition Status Assessment Other testicular dysfunction E29.8 Active Assessment Type 2 diabetes mellitus without complications E11.9 Active Assessment Benign essential hypertension I10 Active Problem Diabetes Mellitus Type [...] Start Date End Date Status Dosage Victoza [facility] [address]-69 18 MG/3ML Subcutaneous Once a day 1.2 Verapamil HCl CR [facility] [address]-06 240 MG Orally Once a day Feb 09, 2015 1 tablet in the morning with food Viagra [facility] [address]-43 100 MG Orally Once a day as needed Mar 24, 2015 Mar 18, 2016 1 tablet Lisinopril [facility] [address]-21 40 MG Orally Once a day 1 tab GlipiZIDE [facility] [address]-43 10 MG Orally BID 1 tablet Accu-Chek Compact [facility] [address]-21 In Vitro BID Jan 14, 2015 as directed BD U/F Short Pen Needle [facility] 8290-876229 31G X 8 MM Subcutaneous BID, DX: E11.9 Feb 24, 2015 as directed Metformin HCl [facility] [address]-02 500 MG ER Orally once a day 4 tablet with meals Procedures Procedure Coding System Code Date OFFICE VISIT, EST-LOW COMPLEXITY (15 MIN.) CPT-4 01095 Nov 03, 2015 HEMOGLOBIN A1C, IN HOUSE CPT-4 09046 Nov 03, 2015 Vital Signs Date/Time: Nov 03, 2015 Temperature 98.0 F Height 75 in Weight 396.4 lbs Blood Pressure Diastolic 82 mm Hg Blood Pressure Systolic 162 mm Hg Cardiac Monitoring Heart Rate 60 /min BMI 49.54 Index Oximetry 94 % Respiratory Rate 20 /min Results Name Result Date Reference Range Unit Abnormality Flag In House HB A1c ----Hemoglobin A1c 8.6 [id number] Summary Purpose eClinicalWorks Submission
--- OUTSIDE RECORDS SUMMARY | 2016-07-21 12:32 | XMS REPORT ---
Author Author Gilma Williamson [facility] eClinicalWorks Address Unknown Phone Unavailable Care Team Providers Care Tin Pourer Name Role Phone Gilma Williamson Unavailable Allergies [...] Start Date End Date Status Dosage Victoza [facility] [address]-46 18 MG/3ML Subcutaneous Once a day. Dx code E11.9 Mar 18, 2016 1.8 mg Viagra [facility] [address]-58 100 MG Orally Once a day as needed Mar 24, 2015 Mar 18, 2016 1 tablet Results No Known Results Summary Purpose eClinicalWorks Submission
--- OUTSIDE RECORDS SUMMARY | 2016-07-21 12:32 | XMS REPORT ---
Author Author Gilma Williamson [facility] eClinicalWorks Address Unknown Phone Unavailable Care Team Providers Care Hog Worker Name Role Phone Gilma Williamson CP Unavailable [...] Start Date End Date Status Dosage Viagra [facility] [address]-27 100 MG Orally PRN Jan 08, 2015 Active 1 tablet as needed Vital Signs Date/Time: Jan 13, 2014 Blood Pressure Diastolic 86, repeat:162 mm Hg Blood Pressure Systolic 164 mm Hg Height 75 inches Results No Known Results Summary Purpose eClinicalWorks Submission
--- OUTSIDE RECORDS SUMMARY | 2016-07-21 12:32 | XMS REPORT ---
Author Author Gilma Williamson [facility] eClinicalWorks Address Unknown Phone Unavailable Care Team Providers Care Medical Geneticist Name Role Phone Gilma Williamson Unavailable Allergies [...] Instructions Start Date End Date Status Dosage Nuvigil [facility] [address]-43 150 MG Orally Once a day August 05, 2013 Feb 06, 2015 Active 1 tablet 30 min-1 hr prior to work Vital Signs Date/Time: Feb 11, 2014 Blood Pressure Diastolic 60 mm Hg Blood Pressure Systolic 130 mm Hg Height 75 inches Results No Known Results Summary Purpose eClinicalWorks Submission
--- OUTSIDE RECORDS SUMMARY | 2016-07-21 12:32 | XMS REPORT ---
Author Author Chelita Guzman [facility] eClinicalWorks Address Unknown Phone Unavailable Care Team Providers Care Bus Repair Supervisor Name Role Phone Chelita Guzman CP Unavailable Allergies, Adverse Reactions, Alerts Substance Reaction Event Type N.K.D.A. Info Not Available Non Drug Allergy Problems Problem Type Condition Code Onset Dates Condition Status Assessment Acute bronchitis, unspecified J20.9 Active Problem Other and unspecified hyperlipidemia 272.4 [...] Start Date End Date Status Dosage Lisinopril [facility] [address]-35 20 MG Orally Once a day 1 tab Verapamil HCl CR [facility] [address]-69 180 MG Orally Once a day Feb 09, 2015 1 tablet in the morning with food Accu-Chek Compact [facility] [address]-40 In Vitro BID Jan 14, 2015 as directed Metformin HCl [facility] [address]-02 1000 MG Orally Twice a day 1 tablet with meals Tessalon Perles [facility] [address]-53 100 MG Orally Three times a day Feb 09, 2015 Mar 01, 2015 1 capsule as needed Victoza [facility] [address]-46 18 MG/3ML Subcutaneous Once a day Apr 19, 2015 1.8 mg Albuterol Sulfate HFA [facility] [address]-15 108 (90 Base) MCG/ACT Inhalation every 4 hrs Feb 09, 2015 2 puffs as needed GlipiZIDE [facility] [address]-66 10 MG Orally BID 1 tablet Procedures Procedure Coding System Code Date OFFICE VISIT, EST-LOW COMPLEXITY (15 MIN.) CPT-4 82930 Feb 09, 2015 Vital Signs Date/Time: Feb 09, 2015 Height 75 in Weight 393.8 lbs Temperature 98.4 F Blood Pressure Diastolic 72 mm Hg Blood Pressure Systolic 140 mm Hg Cardiac Monitoring Heart Rate 66 /min BMI 49.22 Index Oximetry 94 % Results No Known Results Summary Purpose eClinicalWorks Submission
--- OUTSIDE RECORDS SUMMARY | 2016-07-21 12:32 | XMS REPORT ---
Author Author Gilma Williamson [facility] eClinicalWorks Address Unknown Phone Unavailable Care Team Providers Care Advocacy Director Name Role Phone Gilma Williamson CP Unavailable [...] Start Date End Date Status Dosage BD U/F Short Pen Needle [facility] 4490-730469 31G X 8 MM Subcutaneous BID, DX: E11.9 Feb 24, 2015 as directed Results No Known Results Summary Purpose eClinicalWorks Submission
[2016-07-21] MEDS ORDERED: LISI40TA4 PO (12:54)
--- NOTE | 2016-07-21 13:11 | ERPDOC ---
Departure Disposition Decision Date: July 21, 2016 Disposition Decision Time: 16:17 Disposition: 01 DISCHARGED HOME, SELF-CARE Impression Impression Impression: Primary Impression: Diabetic foot ulcer Additional Impression: Cellulitis of foot Severity: Moderate Condition: Stable Seen By: Physician only Referrals: GILMA GILMORE APRN (Family) Patient Instructions: Diabetic Foot Ulcers (ED) Problems/Meds/Labs Reviewed?: Yes Medications reviewed and manag: Yes Additional Instructions: You are risk for amputation due to uncontrolled diabetes and infection. You are being given an antibiotic to help with the infection. Augmentin XR, 2 tablets twice daily. You need to call and set up appointments at the following: Wound care clinic-- [phone] Dr. Tolbert (general surgeon) -- [phone] Gilma Gilmore ([facility] -- [phone] If you develop a fever, you need to return to the emergency department. Follow up care ordered?: Yes HPI - Skin General General Chief Complaint: Skin Injury Stated Complaint: DIABETIC ULCER Time Seen by Provider: 12:41 HPI - Skin General Initial Comments 51-year-old gentleman with blisters on his toes. Patient has noted blisters on 2 toes of the right foot. He has a history of diabetes, poorly controlled. His onset yesterday, he poked them with a needle and blood and pus ran out. This morning they had refilled. He also has noticed that his toenail is becoming loose on the right first toe. While sitting in the waiting room waiting for me come in, he peeled left the toenail and had quite significant bleeding from the toe. Allergies: Coded Allergies: No Known Drug Allergies (Verified Allergy, Unknown, 07/21/16) Past History Past Medical History Metabolic: diabetes Hematologic: DVT Surgical History General: tonsils Family History Family PMH: FOUND: hypertension Vaccines Hx Influenza Vaccination: No Hx Pneumococcal Vaccination: No Social History Smoking Status: Never smoker Substance Use Type: does not use Sexuality: female partner Record Review Pertinent history updated: Yes Review of Systems GI Upper Abdomen: see HPI Musculoskeletal General: see HPI Integumentary Skin: see HPI Endocrine Endocrine: see HPI Physical Exam General General Nourishment: adult, obese Distress Description Bleeding profusely from toenail, nurses wrapped it, which is slow the bleeding. General Body Habitus: well groomed Vitals and Pain First Documented Vital Signs Date Time Temp Pulse Resp B/P Pulse Ox O2 Delivery O2 Flow Rate FiO2 07/21/16 12:30 98.1 88 17 165/89 97 Room Air Weight: Kilograms: Height (feet): 6 Height (inches): 3 Triage Pain Scale: Normal Exams: Head: Normocephalic w/o trauma Neck: Full range of motion, without adenopathy, JVD, bruits or thyromegaly Chest/Resp: Clear all vega, with good airflow, and symmetry bilaterally CV: Regular rate and rhythm, without murmur or gallop, Pulses 2+ all extremities, capillary refill, <2 seconds all ext., no pedal edema noted Integumentary (brief) Comments Bleeding from nail bed right first toe. Pressure dressing as effective slow the bleeding. Differential Diagnoses Considering: Other (fungal toenail) Progress Results/Orders Orders Procedure Category Date Status Time Cbc W/Auto LAB 07/21/16 Complete Diff-Reflex Manual Cmp - Comprehensive LAB 07/21/16 Complete Metabolic INR LAB 07/21/[address] Lower Extremity Rt CT 07/21/16 Logged W/O Cont 13:59 Lab Results Laboratory Tests Test 07/21/16 13:02 White Blood Count 6.7T/MM3 Red Blood Count 4.31M/MM3 Hemoglobin 12.3GM/DL Hematocrit 37.9% Mean Corpuscular Volume 87.9UM3 Mean Corpuscular Hemoglobin 28.5UUG Mean Corpuscular Hemoglobin Concent 32.5GM/DL RDW Standard Deviation 44.7FL Platelet Count 145T/MM3 Mean Platelet Volume 10.8UM3 Immature Granulocyte % (Auto) 0.6% Neutrophils (%) (Auto) 66.1% Lymphocytes (%) (Auto) 26.5% Monocytes (%) (Auto) 5.2% Eosinophils (%) (Auto) 1.3% Basophils (%) (Auto) 0.3% Absolute Immature Granulocyte (auto 0.04T/MM3 Absolute Neutrophils (auto) 4.4T/MM3 Absolute Lymphocytes (auto) 1.8T/MM3 Absolute Monocytes (auto) 0.4T/MM3 Absolute Eosinophils (auto) 0.1T/MM3 Absolute Basophils (auto) 0.0T/MM3 Prothromb Time International Ratio 1.03 Turbidity < 20 Sodium Level 139MEQ/L Potassium Level 4.4MEQ/L Chloride Level 102MEQ/L Carbon Dioxide Level 26MEQ/L Anion Gap 11MEQ/L Blood Urea Nitrogen 13.0MG/DL Creatinine 0.7MG/DL Glomerular Filtration Rate Calc 119 BUN/Creatinine Ratio 19RATIO Glucose Level 434MG/DL Calculated Osmolality 287MOSM/KG Calcium Level 9.5MG/DL Total Bilirubin 0.30MG/DL Icterus Index < 2 Aspartate Amino Transf (AST/SGOT) 24U/L Alanine Aminotransferase (ALT/SGPT) 50U/L Alkaline Phosphatase 48U/L Total Protein 6.3G/DL Albumin 3.9G/DL Globulin 2.4G/DL Albumin/Globulin Ratio 1.6RATIO Chemistry Specimen Hemolysis < 15 Progress Progress Patient has obvious cellulitis of first and second toe right foot with possible gangrene. CT showed no involvement of bone and white count is normal. He will be started on Augmentin XR 2 tabs twice daily. He is to follow-up with wound clinic on Saturday and will be given Dr. Tolbert's office phone number to call for an appointment as well. He does need to set up follow-up with [facility] so that all of his providers are in the loop best treatment. I did explain to him there is a reasonable chance that he will require surgery on the toe and that if he wants to keep the toes he is going to have to get his sugars under control very rapidly. We had a long talk about diabetic diet and compliance with medication. Toes were bandaged and patient is discharged to follow-up with the wound clinic for debridement and further treatment. REMEDIOS PEDRAZA MD July 21, 2016 13:11
[2016-07-21 13:13] LABS: INR 1.03 (0.76-1.04); PROTHROMBIN TIME 11.2 SEC (9.31-12.49)
[2016-07-21 13:16] LABS: BASOPHILS % (AUTO) 0.3 % (0-2); EOSINOPHILS # (AUTO) 0.1 T/MM3 (0-0.5); EOSINOPHILS % (AUTO) 1.3 % (0-4); HCT - HEMATOCRIT 37.9 % (41-53); HGB - HEMOGLOBIN 12.3 GM/DL (13.5-17.5); IMMATURE GRANULOCYTE # (AUTO) 0.04 T/MM3 (0.00-0.03); IMMATURE GRANULOCYTE % (AUTO) 0.6 % (0.0-0.5); LYMPHOCYTES # (AUTO) 1.8 T/MM3 (1-4.8); LYMPHOCYTES % (AUTO) 26.5 % (23-45); MEAN CORPUSCULAR HGB 28.5 UUG (26-34); MEAN CORPUSCULAR HGB CONC(MCHC 32.5 GM/DL (31-37); MEAN CORPUSCULAR VOLUME 87.9 UM3 (80-100); MEAN PLATELET VOLUME 10.8 UM3 (9.4-12.4); MONOCYTES # (AUTO) 0.4 T/MM3 (0-0.8); MONOCYTES % (AUTO) 5.2 % (0-9.0); NEUTROPHILS #(AUTO)-ABSOLUTE 4.4 T/MM3 (1.8-7.7); NEUTROPHILS % (AUTO) 66.1 % (33-66); RED BLOOD COUNT 4.31 M/MM3 (4.50-5.90); WBC - WHITE BLOOD COUNT 6.7 T/MM3 (4.5-11.0)
[2016-07-21 13:19] LABS: ALBUMIN 3.9 G/DL (3.5-5.0); ALBUMIN/GLOBULIN RATIO 1.6 RATIO (1.1-2.2); ALKALINE PHOSPHATASE 48 U/L (38-126); ALT (SGPT) 50 U/L (21-72); ANION GAP 11 MEQ/L (5-15); AST (SGOT) 24 U/L (17-59); BUN/CREATININE RATIO 19 RATIO (6-26); CALCIUM 9.5 MG/DL (8.4-10.2); CHLORIDE 102 MEQ/L (98-107); CO2 - CARBON DIOXIDE 26 MEQ/L (22-30); CREATININE 0.7 MG/DL (0.8-1.5); GLOMERULAR FILTRATION RATE 119; GLUCOSE 434 MG/DL (75-110); POTASSIUM 4.4 MEQ/L (3.6-5); SODIUM 139 MEQ/L (134-144); TOTAL PROTEIN 6.3 G/DL (6.3-8.2)
--- OUTSIDE RECORDS SUMMARY | 2016-07-21 13:20 | XMS REPORT | Continuity of Care Document ---
Author Author [facility] Organization [facility] Address Unknown Phone Unavailable Support Name Relationship Address Phone CANDIDO GILMORE APRN Caregiver [address] [place] [id number] TJSHAINA Next Of Kin [address] [place], [place] [id number] Problems Medical Problems Problem Onset Date Status [...] Has specimen been collected/obtained? Y Urine Specific [place] January 17, 2012 6:40pm 1.020 - Has [...] 04, 2013 9:12am LAB TEST FORM REQUEST [id number] - HDL Cholesterol Direct December 04, 2013 [...] of procedures. Encounters Encounter Location Date/Time Discharged [facility] 01/15/14 9:00am
--- OUTSIDE RECORDS SUMMARY | 2016-07-21 13:20 | XMS REPORT | Continuity of Care Document ---
Author Author [facility] Organization [facility] Address Unknown Phone Unavailable Support Name Relationship Address Phone DEIRDRE CANDIDOANNABELLA Allen APRN Caregiver [address] [place] [address] LEVI CARLSON MD Caregiver [address] [place] [address] [place] [id number] SHAINA SPENCER Next Of Kin [address] [place] [address] Problems Medical Problems Problem Onset [...] F (96.8 - 99.1) Temperature (Calculated Celsius) 36.54676 degrees C (36.0 - 37.3) Pulse Rate [...] Has specimen been collected/obtained? Y Urine Specific [place] January 17, 2012 6:40pm 1.020 - Has [...] 11, 2013 7:27pm LAB TEST FORM REQUEST [id number] - HDL Cholesterol Direct June 02, 2011 [...] Encounters Encounter Location Date/Time Registered Emergency Room [facility] 11/13/13 4:45pm Recent Diagnosis
--- NOTE | 2016-07-21 14:00 | NUR ---
STATUS TALKED WITH PT REGUARDING THE POSSIBLE PLANS FOR TOE CARE THIS NEXT WEEK. QUESTIONS ASKED BY PT WERE ANSWERED.
--- NOTE | 2016-07-21 14:29 | NUR ---
STATUS PT ASKS ABOUT DAUGHTER THAT IS IN ANOTHER ROOM. ADVISE THAT HER IS WORRIED ABOUT HIS DAUGHTER AND ASK IF NURSE COULD GIVE HIM AN UPDATE. OKAYS THIS AND UPDATE GIVEN TO THIS PT
--- NOTE | 2016-07-21 16:02 | NUR ---
DR PEDRAZA IN WITH PT
[2016-07-21] MEDS ORDERED: NEOMYCIN/POLYM/BACITR OINT PACKET TOP ONE ×2 (16:15→16:21)
[2016-07-21 16:48] VITALS: BP 157/78; PULSE 78; RESP 17; TEMP 98.1; O2SAT 98
[2016-07-21] MEDS ORDERED: [UNRECOGNIZED DRUG - CODE] PO (16:49)
--- NOTE | 2016-07-22 09:53 | DI ---
Indication: ITS.REASON: infection right toes PROCEDURE: CT LOWER EXTREMITY RT W/O CONT: Encounter: Initial Comparison: None Technique: Axial noncontrast CT imaging of the right foot was performed with coronal and sagittal two-dimensional reformats Automated Exposure Control and Iterative Reconstruction dose reducing techniques were utilized. Findings: There is periosteal reaction surrounding the base of the fifth metatarsal which apparently represents an incompletely healed prior fracture. No acute fracture identified. There is no periosteal reaction or osteolysis seen in the first or second toe areas of concern to suggest osteomyelitis. No dislocation. Soft tissues show diffuse subcutaneous edema. Muscular attenuation is grossly normal without focal fluid collection. Impression: No CT evidence of acute osteomyelitis in the first or second toe areas of concern. Nuclear medicine bone scan or MRI could be performed for more sensitive evaluation. There is a preliminary report by [facility]. .
== END 2016-07-21 16:48 | disposition home or self-care (01) ==
LOC: ED 12:26
DX: E11.621 Type 2 diabetes mellitus with foot ulcer (principal); L97.519 Non-pressure chronic ulcer of other part of right foot with unspecified severity; L03.031 Cellulitis of right toe; L60.8 Other nail disorders; Z79.84 Long term (current) use of oral hypoglycemic drugs; Z86.718 Personal history of other venous thrombosis and embolism
CPT/HCPCS: 36415; 80053; 85025; 85610

== ENCOUNTER → 2016-07-26 | Outpatient (CLI) | payer OTHER ==
[~2016-07-26] MED LIST changes: -CEPH500T PO; +GADOBUTROL 10mMol/10ml INJECTION IV ONE; -LISI30TA4; +LISI40TA4 PO; +SALINE FLUSH 10ml SYRINGE ONE; +[UNRECOGNIZED DRUG - CODE] PO
--- NOTE | 2016-07-27 10:12 | DI ---
Indication: ITS.REASON: E11.621 Type 2 diabetes mellitus with foot ulcer; L97.512 Non-pre diabetic foot ulcer PROCEDURE: MRI FOOT RIGHT W/WO CONTRAST: Encounter: Initial Comparison: None Technique: Multiplanar multisequence MR imaging of the right foot was performed with and without contrast. Contrast: 10 mL Gadavist Findings: There is some loss of fat suppression in the toes. Increased T2 signal within the intrinsic foot musculature, a common finding in diabetics. No acute fracture identified. The flexor and extensor tendons appear intact. No focal fluid collections appreciated. There is subtle edema within portions of the great toe distal phalanx seen on the STIR sequence. No clear corresponding abnormality on the T1-weighted images. No additional areas of bone marrow edema appreciated. Postcontrast enhancement is difficult to appreciate given the lack of fat suppression in the toe area. Impression: Subtle edema in the great toe distal phalanx could represent osteomyelitis in the appropriate clinical setting. .
== END ==
LOC: IMA 14:27
PROVIDERS: ATTEND Internal Medicine
DX: E11.621 Type 2 diabetes mellitus with foot ulcer (principal); L97.512 Non-pressure chronic ulcer of other part of right foot with fat layer exposed; R60.0 Localized edema
CPT/HCPCS: 73720; A9585